=== PATIENT | male | born 1995 | race Caucasian/White ===

== ENCOUNTER 2018-05-12 17:11 | Observation (INO) | payer BC, OTHER ==
[2018-05-12 17:45] LABS: #Basophils 0.1 thou/uL (0.0-0.2); #Eosinphils 0.1 thou/uL (0.0-0.7); #Lymphocytes 1.2 thou/uL (1.20-3.40); #Monocytes 0.7 thou/uL (0.11-0.59); %Basophils 0.8 % (0.0-1.0); %Eosinophils 1.4 % (0.0-10.0); %Monocytes 7.3 % (0.0-10.0); %Neutrophils 77.5 % (42.0-75.0); Hemoglobin 15.6 g/dL (14.0-18.0); Mean Corpuscular HGB CONC 35.6 g/dL (32.0-36.0); Mean Corpuscular Hemoglobin 32.1 pg (27.0-31.0); Mean Corpuscular Volume 90.2 fL (78.0-98.0); Mean Platelet Volume 6.8 fL (7.4-10.4); Platelet Count 280 thou/uL (130-400); RBC Distribution Width 11.5 % (11.5-14.5); Red Blood Cell (RBC) Count 4.86 mill/uL (4.70-6.10); White Blood Cell (WBC) Count 9.1 thou/uL (4.8-10.8)
[2018-05-12 17:55] LABS: ALT (SGPT) 25 U/L (8-55); AST (SGOT) 20 U/L (5-34); Albumin 5.1 g/dL (3.5-5.0); Alkaline Phosphatase 69 U/L (40-150); Anion Gap 18 mmol/L (10-20); BUN (Urea Nitrogen) 11 mg/dL (8.9-20.6); Bilirubin, Total 0.7 mg/dL (0.2-1.2); Calc. Creatinine Clearance 0 mL/min (70-130); Carbon Dioxide 25 mmol/L (22-29); Chloride 101 mmol/L (98-107); Estimated GFR-MDRD 54; Globulin 2.9 g/dL (2.4-3.5); Glucose 124 mg/dL (70-105); Potassium 3.5 mmol/L (3.5-5.1); Sodium 140 mmol/L (136-145)
[2018-05-12 17:56] LABS: Acetaminophen Less than 6.0 mcg/mL (10.0-30.0); Alcohol Less than 10 mg/dL (Less than 10); Amphetamine Not Detected (NotDetected); Barbiturates Screen Not Detected (NotDetected); Benzodiazepine Screen Not Detected (NotDetected); CK (CPK) 203 U/L (30-200); CKMB 0.6 ng/mL (0-6.6); Cocaine Metabolite Screen Detected (NotDetected); Medtox Control Line Valid? VALID (VALID); Methadone Not Detected (NotDetected); Methamphetamine Detected (NotDetected); Opiate Screen Not Detected (NotDetected); Oxycodone Screen Not Detected (NotDetected); Phencyclidine (PCP) Not Detected (NotDetected); Salicylate Less than 8.0 mg/dL (15.0-30.0); THC/Cannabinoid Screen Detected (NotDetected); Tricyclic Screen Not Detected (NotDetected); Troponin I Less than 0.010 ng/mL (< 0.028)
--- NOTE | 2018-05-12 19:20 | CT ---
HEAD CT WITHOUT CONTRAST: 05/12/18 HISTORY: Headache. Left sided numbness. Possible seizure. FINDINGS: No parenchymal hemorrhage. No extra-axial hematoma. No midline shift. Basilar cisterns are patent. Br ain volume is age appropriate. Cortical wells-white matter differentiation is preserved. No evidence of hydrocephalus. Adequate aeration of the sinuses and mastoid air cells. Calvarium is intact. IMPRESSION: No acute intracranial process. POS: [facility]
[2018-05-12] MEDS ORDERED: Piperacillin/Tazobactam 4.5 GM VIAL ONE (19:24)
[2018-05-12 20:47] LABS: Troponin I Less than 0.010 ng/mL (< 0.028)
[2018-05-13 01:01] VITALS: BMI 28.0
[2018-05-13 01:05] LABS: Troponin I Less than 0.010 ng/mL (< 0.028)
[2018-05-13] MEDS ORDERED: Lorazepam 2 MG/ML VIAL SLOW IVP PRN (01:55)
[2018-05-13] MEDS ORDERED: VANCOMYCIN IVPB PRN (01:59)
[2018-05-13] MEDS ORDERED: Vancomycin HCl 1.5 GM in Sodium Chloride 0.9% 250 ML 300 ML IVPB SCH (03:00)
[2018-05-13] MEDS: Vancomycin HCl 1.75 GM in Sodium Chloride 0.9% 500 ML IVPB SCH ×2 (03:03→15:57)
[2018-05-13] MEDS: Piperacillin/Tazobactam 3.375 GM in Sodium Chloride 0.9% 100 ML IVPB SCH ×2 (05:29→14:53)
[2018-05-13] MEDS ORDERED: Sodium Chloride 0.9% 1,000 ML IV SCH (08:00)
[2018-05-13 08:30] LABS: #Basophils 0.1 thou/uL (0.0-0.2); #Eosinphils 0.3 thou/uL (0.0-0.7); #Lymphocytes 1.2 thou/uL (1.20-3.40); #Monocytes 0.8 thou/uL (0.11-0.59); #Neutrophils 8.3 thou/uL (1.40-6.50); %Basophils 0.5 % (0.0-1.0); %Eosinophils 2.7 % (0.0-10.0); %Lymphocytes 11.2 % (21.0-51.0); %Monocytes 7.4 % (0.0-10.0); %Neutrophils 78.3 % (42.0-75.0); Hemoglobin 15.9 g/dL (14.0-18.0); Mean Corpuscular HGB CONC 33.9 g/dL (32.0-36.0); Mean Corpuscular Volume 97.2 fL (78.0-98.0); Mean Platelet Volume 6.7 fL (7.4-10.4); Platelet Count 327 thou/uL (130-400); RBC Distribution Width 11.8 % (11.5-14.5); Red Blood Cell (RBC) Count 4.82 mill/uL (4.70-6.10); White Blood Cell (WBC) Count 10.6 thou/uL (4.8-10.8)
[2018-05-13 08:42] LABS: Lactic Acid 1.2 mmol/L (0.5-2.2)
[2018-05-13 08:48] LABS: ALT (SGPT) 20 U/L (8-55); AST (SGOT) 15 U/L (5-34); Albumin 4.6 g/dL (3.5-5.0); Alkaline Phosphatase 71 U/L (40-150); Anion Gap 13 mmol/L (10-20); BUN (Urea Nitrogen) 12 mg/dL (8.9-20.6); Bilirubin, Total 0.5 mg/dL (0.2-1.2); Calc. Creatinine Clearance 114 mL/min (70-130); Calcium 9.3 mg/dL (7.8-10.44); Carbon Dioxide 23 mmol/L (22-29); Chloride 106 mmol/L (98-107); Estimated GFR-MDRD 60; Globulin 2.9 g/dL (2.4-3.5); Glucose 105 mg/dL (70-105); Potassium 4.3 mmol/L (3.5-5.1); Protein, Total 7.5 g/dL (6.0-8.3); Sodium 138 mmol/L (136-145)
[2018-05-13] MEDS ORDERED: Vancomycin HCl 1 GM in Premix Bag 1 BAG IVPB SCH (09:00)
--- NOTE | 2018-05-13 15:16 | PDOC.PN ---
- Subjective Encounter Start Date: 05/13/18 -: non-verbal - Objective Vital Signs & Weight: Vital Signs (12 hours) Temp Pulse Resp BP Pulse Ox 05/13/18 11:28 99.9 F H 104 H 20 139/85 98 05/13/18 07:32 98.8 F 80 18 124/74 96 Weight Weight 101.968 kg I&O: 05/12/18 05/13/18 05/14/18 06:59 06:59 06:59 Intake Total 1250 Balance 1250 Result Diagrams: 05/13/18 08:12 05/13/18 08:12 Dx/Plan - Plan * .
[2018-05-13] MEDS ORDERED: Vancomycin HCl 1.75 GM in Sodium Chloride 0.9% 500 ML IVPB SCH (16:00)
--- NOTE | 2018-05-13 16:22 | PDOC.EVN ---
Event Note - Event Note Event Note: Reviewed chart, saw patient. Collaborated with Adali Leung COMPENSATION ANALYST. Agree with assessment and plan as documented.
--- NOTE | 2018-05-13 17:10 | PDOC.PN ---
- Subjective Encounter Start Date: 05/13/18 Encounter Start Time: 12:20 Pt seen for ? seizure. feels better. - Objective MAR Reviewed: Yes Vital Signs & Weight: Vital Signs (12 hours) Temp Pulse Resp BP Pulse Ox 05/13/18 15:47 99.1 F 109 H 20 136/65 98 05/13/18 11:28 99.9 F H 104 H 20 139/85 98 05/13/18 07:32 98.8 F 80 18 124/74 96 Weight Weight 224 lb 12.8 oz I&O: 05/12/18 05/13/18 05/14/18 06:59 06:59 06:59 Intake Total 1250 Balance 1250 Result Diagrams: 05/13/18 08:12 05/13/18 08:12 Phys Exam - Physical Examination Constitutional: NAD HEENT: moist MMs Respiratory: clear to auscultation bilateral Cardiovascular: RRR Neurological: moves all 4 limbs Psychiatric: normal affect Dx/Plan (1) Seizure Code(s): R56.9 - UNSPECIFIED CONVULSIONS Status: Acute Comment: suspected, MRI pending - Plan * . Reviewed chart, saw patient. Collaborated with Adali Leung APPLICATION DEVELOPMENT INTERN. Agree with assessment and plan as documented. Review of Systems - Medications/Allergies Allergies/Adverse Reactions: Allergies Allergy/AdvReac Type Severity Reaction Status Date / Time No Known Drug Allergies Allergy Verified 05/13/18 09:57 Medications: Current Medications Lorazepam (Ativan) 2 mg SLOW IVP Q6H PRN PRN Reason: Seizures Sodium Chloride (Flush - Normal Saline) 10 ml IVF PRN PRN PRN Reason: Saline Flush
--- NOTE | 2018-05-13 22:28 | HP ---
DATE OF ADMISSION: 05/12/2018 PRIMARY CARE PHYSICIAN: Dr. Rhodes. CHIEF COMPLAINT: Left-sided numbness and possible seizure. HISTORY OF PRESENT ILLNESS: Mr. Banerjee is a 23-year-old male who presented to the emergency room in [facility] after he experienced some left-sided numbness and a possible seizure reports kwadwo t he was at a friend's house, had ingested some cocaine, methamphetamines, marijuana, and some other substances when he went to the bathroom, sat down on the toilet and the next thing he remembered that he was slumped over and all the toilet trays were on the floor. He has no recollection of the event . Denies falling or any injury. Reports mild muscle tremors and transient numbness to his left side . Reports several year history of drug abuse on and off, reports that he has been clean for the last 6 months but has started to doing some extracurricular drugs within the last week. Patient denies a history of any seizure disorder. Denies any history of cardiac or lung disease. Does have a histor y of depression. Denies any family history of seizures. He was initially febrile and tachycardic, w hen he presented to the ER, so antibiotics and fluids were started. Based on his history of seizure- like activity, which is a new-onset possible TIA symptoms with the left-sided numbness and recent isaiah g abuse. Decision was made to admit him to the stroke unit for further management. PAST MEDICAL HISTORY: None other than depression. PAST SURGICAL HISTORY: None. FAMILY HISTORY: Noncontributory in this case. SOCIAL HISTORY: Lives at home. REVIEW OF SYSTEMS: Constitutional: Patient denies fever or chills. Eyes: Denies any eye pain or v ision changes. Does report on and off blurry vision, which has been intermittent for the last 24 daniela rs. ENT: Denies any rhinorrhea, sore throat. Cardiovascular: Denies any chest pain or palpitation s. Describes some possible syncope the night prior to admission. Respiratory: Denies any cough, an y shortness of breath. Gastrointestinal: Denies any abdominal pain, diarrhea, nausea, vomiting. Ge nitourinary: Male. Denies any urinary output changes. Denies dysuria. Musculoskeletal: Denies a fall. Denies injury. Skin: Denies rash or skin changes. Neurologic: Denies any dizziness, denies any focal weakness. Does report mild headache. Reports left-sided intermittent numbness. Reports possible seizure activity. Psychiatric: Does report a history of depression. Does report drug abus e. PHYSICAL EXAMINATION: VITAL SIGNS: Temperature 98.8, pulse is 80, respirations are 18, pulse ox is 96% on room air, blood pressure is 124/74. CONSTITUTIONAL: Patient reports a fever yesterday, today is afebrile, nontoxic. Patient appears karrie n free. HEENT: Head is atraumatic, normocephalic. Eyes: Eyelids are normal to inspection. Pupils are equa lly round and reactive to light. Extraocular muscles intact. ENT/MOUTH: Normal. Mucous membranes are moist. NECK: Normal range of motion. Trachea is midline. RESPIRATORY/CHEST: No respiratory distress. Breath sounds are clear. No wheezing. CARDIOVASCULAR: Regular rate and rhythm. S1 and S2. No abnormal heart sounds are heard. ABDOMEN: Male. Abdomen is nontender, nondistended. Bowel sounds are heard. EXTREMITIES: Upper extremity normal inspection, normal range of motion. Motor strength is normal. Sensation is intact. Lower extremity inspection is normal. Range of motion is normal. Motor streng th is normal. Sensation intact. Pulses intact. No edema is noted. NEUROLOGIC: Patient is alert and oriented to person, place and time. Speech is normal. Cranial ner ves are intact. No focal or sensory deficits. No cerebral deficits. SKIN: Dry, normal in color. No rash. IMAGING: EKG in the emergency room, rate was tachycardia, rate was 112. No ectopics. ST segments w ere normal, T waves were normal, axis was right, also he had a second EKG in the emergency room, whic h showed normal sinus rhythm. ST segments were normal, some hyperactive T waves in V4 to V6, axis wa s left. Patient had a head CT, which showed no acute process. LABORATORY DATA: White blood cell count was 9.1, RBCs 4.86, hemoglobin 15.6, hematocrit 43.9, platel et count 280. Chemistry: Sodium 138, potassium 4.3, chloride 106. Gap was 13. BUN is 12, creatini ne is 1.44, estimated GFR is 60. Lactic acid 1.2, calcium 9.3. Liver enzymes unremarkable. CK was 203, CK-MB was 0.6. Troponins x3 were undetectable. Prolactin of 10.9. Toxicology, patient had pos itive results of methamphetamines, cocaine, and cannabinoids. ASSESSMENT AND PLAN: 1. Seizure/transient ischemic attack symptoms. Plan MRI of the brain, echocardiogram. We will tren d lab values. 2. Acute kidney injury. We will give fluids. Recheck labs in the morning. 3. Drug abuse counseling has been provided. We will continue to monitor. Hospital course will depe nd on clinical findings.
[2018-05-14 05:18] LABS: #Basophils 0.1 thou/uL (0.0-0.2); #Eosinphils 0.4 thou/uL (0.0-0.7); #Monocytes 0.7 thou/uL (0.11-0.59); #Neutrophils 5.5 thou/uL (1.40-6.50); %Basophils 0.9 % (0.0-1.0); %Eosinophils 4.8 % (0.0-10.0); %Lymphocytes 22.7 % (21.0-51.0); %Monocytes 7.9 % (0.0-10.0); %Neutrophils 63.7 % (42.0-75.0); Hemoglobin 15.5 g/dL (14.0-18.0); Mean Corpuscular HGB CONC 34.5 g/dL (32.0-36.0); Mean Corpuscular Hemoglobin 33.5 pg (27.0-31.0); Mean Corpuscular Volume 97.1 fL (78.0-98.0); Platelet Count 335 thou/uL (130-400); RBC Distribution Width 11.6 % (11.5-14.5); Red Blood Cell (RBC) Count 4.62 mill/uL (4.70-6.10); White Blood Cell (WBC) Count 8.6 thou/uL (4.8-10.8)
[2018-05-14 05:37] LABS: ALT (SGPT) 17 U/L (8-55); AST (SGOT) 13 U/L (5-34); Albumin 4.5 g/dL (3.5-5.0); Alkaline Phosphatase 68 U/L (40-150); Anion Gap 13 mmol/L (10-20); BUN (Urea Nitrogen) 13 mg/dL (8.9-20.6); Bilirubin, Total 0.8 mg/dL (0.2-1.2); Calc. Creatinine Clearance 115 mL/min (70-130); Calcium 9.4 mg/dL (7.8-10.44); Carbon Dioxide 23 mmol/L (22-29); Chloride 105 mmol/L (98-107); Estimated GFR-MDRD 61; Glucose 102 mg/dL (70-105); Potassium 3.9 mmol/L (3.5-5.1); Protein, Total 7.5 g/dL (6.0-8.3); Sodium 137 mmol/L (136-145)
[2018-05-14 12:29] VITALS: BP 126/64; TEMP 99.2
--- NOTE | 2018-05-14 13:27 | MRI ---
MRI BRAIN NONCONTRAST: DATE: 05/14/18 HISTORY: 23-year-old male with new onset seizure-like activity, TIA-like symptoms and headache with left upper extremity numbness. COMPARISON: None. FINDINGS: There are a few tiny T2-hyperintense foci in the anterior upper frontal centrum semiovale, a few mill imeters in size each. There are periventricular, small T2 hyperintensities, most notably around the u pper aspects of the trigones of the lateral ventricles bilaterally, and especially abutting the front al horn of the right lateral ventricle. These are all nonspecific. There is no restricted diffusion t o indicate an acute infarction. No obstructive hydrocephalus, mass effect, midline shift, extra-axial fluid collection, and no recent or remote intra-axial hemorrhage. No asymmetry between the left and right hippocampi. IMPRESSION: 1. No acute intracranial findings. 2. Nonspecific mild T2 hyperintensities in the supratentorial brain, some in the frontal deep white matter, and others in periventricular locations. These are nonspecific. Possibilities include migrain e lesions and minimal/mild chronic ischemic white matter changes due to microvascular atherosclerosis , greater than typical for age 23 years. NOHELIA Fuller POS: [facility]
--- NOTE | 2018-05-14 14:07 | PDOC.EVN ---
Event Note - Event Note Event Note: I have interviewed, examined and discussed patient with SHANE Auguste regarding polysubstance abuse with methamphetamine, THC and cocaine with encephalopathy. Ruled out TIA/CVA with negative neuroimaging. VSS, LCTAB, S1, S2 , AxOx4. Please see dictated H&P, progress notes and documentation from Vern Epstein for day of discharge. Counseling for drug abstinence, close follow up with PCP at discharge.
--- NOTE | 2018-05-15 03:18 | DIS ---
DATE OF ADMISSION: 05/12/2018 DATE OF DISCHARGE: 05/14/2018 DISCHARGE DIAGNOSES: 1. Possible transient ischemic attack, resolved. 2. Multidrug abuse, stable. 3. Acute kidney injury, stable and improving. CONSULTATIONS: None. LABORATORY AND DIAGNOSTIC IMAGING: WBC 8.6, RBC 4.62, hemoglobin 15.5. Sodium 137, potassium 3.9. Creatinine on admission 1.59, improved to 1.43. AST 13, ALT 17, alkaline phosphatase 68, creatine ki nase 203, CK-MB 0.6, troponin less than 0.010 x2. Prolactin 10.9. Toxicology screen detected metham phetamines, cocaine and cannabinoids and plasma alcohol was less than 10. CT of head showed no acute process. MRI brain showed no acute findings; however, did display nonspecific mild T2 hyperintensit ies in the supratentorial brain some in the frontal deep white matter others in the periventricular l ocations, echocardiogram displayed left ventricular ejection fraction of 50%-55%. HOSPITAL COURSE: Mr. Banerjee is a pleasant 23-year-old male who had presented to [facility] with some complaints of left-sided weakness along with possible seizure after multi-subs tance abuse which included cocaine, methamphetamines, marijuana and some other substance unknown to [id number]. His initial workup included a CT of head which found no acute findings. He was admitted to telemetry on observation for his symptoms. Here, he underwent an echocardiogram during hospital cour se which displayed a left ventricular ejection fraction of 50%-55%. He also underwent an MRI of [facility] [place] [facility] which showed no acute findings; however, it did display some nonspecific mild T2 hyperintensities i n the supratentorial brain, some in the frontal deep matter and other than the periventricular locati ons. These were nonspecific which possibilities include migraine lesions and minimal chronic ischemi c white matter changes. He was seen and examined prior to discharge with family members at bedside, he had no further complaints of weakness or numbness. He had no complaints of chest pain, shortness of breath or abdominal pain. He was able to ambulate throughout the room without any complaints. He had tolerated a regular diet with no complications. He was educated on the importance of sobriety a nd cessation of drug use. He had verbalized his understanding, he was instructed to follow up with [facility] physician in 1-2 weeks post-discharge. His vitals remained stable and he remained asympt omatic throughout the hospital course, workup was essentially unremarkable. Therefore, he was deemed stable for discharge home on 05/14/2018. DISCHARGE MEDICATIONS: None. FOLLOWUP: The patient is to follow up with primary care physician in 1-2 weeks. CONDITION ON DISCHARGE: Stable. DIET: Regular diet. ACTIVITY: As tolerated. DISPOSITION: Home on 05/14/2018.
--- NOTE | 2018-05-19 19:14 | EKG ---
Test Reason : Blood Pressure : / mmHG Vent. Rate : 112 BPM Atrial Rate : 112 BPM P-R Int : 166 ms QRS Dur : 104 ms QT Int : 350 ms P-R-T Axes : 064 093 046 degrees QTc Int : 477 ms Poor data quality, interpretation may be adversely affected Sinus tachycardia Rightward axis Borderline ECG Confirmed by JOMAR TEJADA DO ([id number]), non linear editor TATYANA TAYLOR ([id number] on 05/19/2018 7:14:28 PM Referred By: Confirmed By:JOMAR TEJADA DO
== END 2018-05-14 14:23 | disposition home or self-care (01) ==
LOC: SCSER 17:11 → 2SE 19:13
PROVIDERS: ADMIT Hospitalist; ATTEND Hospitalist
DX: F15.10 Other stimulant abuse, uncomplicated (principal); F14.10 Cocaine abuse, uncomplicated; F12.10 Cannabis abuse, uncomplicated; F19.10 Other psychoactive substance abuse, uncomplicated; G93.40 Encephalopathy, unspecified; F32.9 Major depressive disorder, single episode, unspecified; N17.9 Acute kidney failure, unspecified; R56.9 Unspecified convulsions
CPT/HCPCS: 36415; 70450; 70553; 80053; 80306; 80307; 82553; 83605; 84146; 84484; 85025; 87040; 93005; 93306; 96361; 96365; 96366; 96367; G0378; J2543; J3370; J7050

== ENCOUNTER 2020-03-18 13:23 | Outpatient (CLI) | payer BC ==
--- NOTE | 2020-03-18 14:54 | MRI ---
Exam: Brain MRI without contrast HISTORY: Recurrent headache. Loss of body mass in the entire right side of his body. COMPARISON: 05/14/2018 FINDINGS: Calvarial marrow signal intensity: Appropriate T1 signal Gradient echo sequence: No hemorrhage Brain parenchyma: No mass, mass effect or midline shift. Brain volume, age-appropriate. Cortical wells-white matter differentiation: Preserved Restricted diffusion: Central arterial flow voids are maintained. Absent restricted diffusion White matter signal intensities:Stable T2, FLAIR white matter hyperintensities. No significant interv al increase in the degree of T2 or FLAIR white matter hyperintensity. Sinuses: Adequate aeration of the paranasal sinuses and mastoid air cells. IMPRESSION: 1. No acute process 2. Stable nonspecific T2 and FLAIR white matter hyperintensities.
== END 2020-03-18 13:24 | disposition home or self-care (01) ==
LOC: BICMRI 13:23
PROVIDERS: ATTEND Family Medicine
DX: R51 Headache (principal); R90.82 White matter disease, unspecified
CPT/HCPCS: 70551

== ENCOUNTER 2021-07-08 16:30 | Outpatient (CLI) | payer OTHER | END 2021-07-08 16:31 | disposition home or self-care (01) | LOC: SLEEPLAB 16:30 | PROVIDERS: ATTEND Family Medicine | DX: G47.33 Obstructive sleep apnea (adult) (pediatric) (principal); R53.83 Other fatigue; R06.83 Snoring; G47.00 Insomnia, unspecified | CPT/HCPCS: 95806 ==